=== PATIENT | male | born 1985 | race African-American/Black ===

== ENCOUNTER 2016-07-02 18:31 | Emergency (ER) | payer MEDICAID ==
[~2016-07-02] VITALS: Ht 175.3 cm; Wt 76.0 kg
[~2016-07-02 18:31] MED LIST: HYDR-1348
[2016-07-02 23:09] VITALS: BP 138/82
== END 2016-07-02 23:11 | disposition home or self-care (01) ==
LOC: ER 18:31
DX: S62.92XA Unspecified fracture of left hand, initial encounter for closed fracture (principal); I10 Essential (primary) hypertension; F17.200 Nicotine dependence, unspecified, uncomplicated; Z98.890 Other specified postprocedural states; X58.XXXA Exposure to other specified factors, initial encounter; Y93.89 Activity, other specified; Y99.8 Other external cause status; Y92.89 Other specified places as the place of occurrence of the external cause
CPT/HCPCS: 29125; 73130; 99284

== ENCOUNTER 2017-06-29 17:49 | Emergency (ER) | payer MEDICAID ==
[~2017-06-29] VITALS: Ht 175.3 cm; Wt 91.0 kg
[2017-06-29] MEDS ORDERED: IBUPROFEN 800MG TABLET PO ONE (19:45)
[2017-06-29 20:50] VITALS: BP 129/90
== END 2017-06-29 20:52 | disposition home or self-care (01) ==
LOC: ER 18:48
DX: R07.89 Other chest pain (principal); I10 Essential (primary) hypertension; F17.200 Nicotine dependence, unspecified, uncomplicated
CPT/HCPCS: 71045; 93005; 99284

== ENCOUNTER 2018-01-17 11:21 | Emergency (ER) | payer MEDICAID ==
[~2018-01-17] VITALS: Ht 175.3 cm; Wt 68.0 kg
[2018-01-17 11:30] VITALS: BP 120/81
== END 2018-01-17 22:10 | disposition left against medical advice (07) ==
LOC: ER 11:21
DX: Z53.21 Procedure and treatment not carried out due to patient leaving prior to being seen by health care provider (principal)

== ENCOUNTER 2018-05-18 07:17 | Emergency (ER) | payer MEDICAID ==
[~2018-05-18] VITALS: Ht 175.3 cm; Wt 78.0 kg
[2018-05-18 07:34] VITALS: BP 135/91
== END 2018-05-18 09:28 | disposition home or self-care (01) ==
LOC: ER 07:17
DX: H61.21 Impacted cerumen, right ear (principal); F12.10 Cannabis abuse, uncomplicated; Z79.899 Other long term (current) drug therapy
CPT/HCPCS: 69209; 99282

== ENCOUNTER 2018-10-13 14:48 | Emergency (ER) | payer MEDICAID ==
[~2018-10-13] VITALS: Ht 170.2 cm; Wt 90.0 kg
[2018-10-13] MEDS ORDERED: IBUPROFEN 600MG TABLET PO STA (16:03)
[2018-10-13 17:50] VITALS: BP 143/86
== END 2018-10-13 20:23 | disposition home or self-care (01) ==
LOC: ER 14:48
DX: J06.9 Acute upper respiratory infection, unspecified (principal); M94.0 Chondrocostal junction syndrome [Tietze]; I10 Essential (primary) hypertension; Z91.19 Patient's noncompliance with other medical treatment and regimen
CPT/HCPCS: 71045; 93005; 99283

== ENCOUNTER 2019-01-09 13:41 | Emergency (ER) | payer MEDICAID ==
[~2019-01-09] VITALS: Ht 177.8 cm; Wt 100.0 kg
[2019-01-09 13:44] VITALS: BP 146/99
== END 2019-01-09 15:52 | disposition left against medical advice (07) ==
LOC: ER 13:41
DX: Z53.21 Procedure and treatment not carried out due to patient leaving prior to being seen by health care provider (principal)

== ENCOUNTER 2019-04-13 07:23 | Emergency (ER) | payer MEDICAID ==
[~2019-04-13] VITALS: Ht 175.3 cm; Wt 87.0 kg
[2019-04-13 08:03] VITALS: BP 158/78
== END 2019-04-13 08:33 | disposition home or self-care (01) ==
LOC: ER 08:11
DX: J06.9 Acute upper respiratory infection, unspecified (principal); I10 Essential (primary) hypertension
CPT/HCPCS: 99283

== ENCOUNTER 2022-09-23 12:00 | Emergency (ER) | payer MEDICAID ==
[~2022-09-23] VITALS: Ht 175.3 cm; Wt 89.0 kg
[2022-09-23 12:23] VITALS: BP 125/75; RESP 20; TEMP 98.8; O2SAT 100
[2022-09-23 12:26] VITALS: PULSE 69
[2022-09-23] MEDS ORDERED: BACITRACIN ZINC OINT UDPKT TOP ONE (13:15)
[2022-09-23] MEDS ORDERED: LIDOCAINE HCL/PF 1% 10 MG/ML 5ML VIAL INFIL ONE (13:15)
[2022-09-23] MEDS ORDERED: CEPH500C2 MT (14:18)
[2022-09-23] MEDS ORDERED: IBUP-2029 PO (14:18)
[2022-09-23] MEDS ORDERED: SULF1TAB48 PO (14:18)
[2022-09-23] MEDS ORDERED: IBUPROFEN 600MG TABLET PO STA (14:35)
== END 2022-09-23 15:15 | disposition home or self-care (01) ==
LOC: ER 12:47
DX: L72.3 Sebaceous cyst (principal)
CPT/HCPCS: 10060; 99283; J3490; Z7610

== ENCOUNTER 2023-02-27 17:23 | Emergency (ER) | payer MEDICAID ==
[~2023-02-27] VITALS: Ht 175.3 cm; Wt 82.0 kg
[~2023-02-27 17:23] MED LIST changes: +CEPH500C2 MT; +IBUP-2029 PO; +SULF1TAB48 PO
[2023-02-27 17:40] VITALS: O2SAT 100
[2023-02-27] MEDS ORDERED: ONDANSETRON HCL 4MG/2ML INJ IV STA (18:27)
[2023-02-27] MEDS ORDERED: MAGNESIUM/ALUMINUM HYDROXIDE/SIMETHICONE 30ML UDC PO STA (18:27)
[2023-02-27] MEDS ORDERED: DICYCLOMINE 10 MG/5 ML ORAL SYR PO STA (18:27)
[2023-02-27] MEDS ORDERED: HALOPERIDOL LACTATE 5MG/ML VIAL IM ONE (18:30)
[2023-02-27] MEDS ORDERED: DIPHENHYDRAMINE 50MG/ML VIAL IV ONE (18:30)
[2023-02-27] MEDS ORDERED: DICYCLOMINE HCL 10MG CAPSULE PO NR (18:30)
[2023-02-27 20:00] VITALS: TEMP 99.2
[2023-02-27 20:24] LABS: BASOPHILS % 0.4 % (0.0-2.0); EOSINOPHILS % 0.2 % (0.0-5.0); HEMATOCRIT. 46.7 % (42.0-52.0); HEMOGLOBIN. 16.2 g/dL (14.0-18.0); LYMPHOCYTES % 16.3 % (20.0-50.0); MEAN CORPUSCULAR HEMOGLOBIN 34.4 pg (28.0-32.0); MEAN CORPUSCULAR HGB CONC 34.7 g/dL (31.0-37.0); MEAN PLATELET VOLUME 7.2 fl (7.4-10.4); MONOCYTES % 9.4 % (2.0-8.0); NEUTROPHILS % 73.7 % (40.0-76.0); PLATELET 304 x1000/uL (130-400); RED BLOOD CELL COUNT 4.72 mill/uL (4.7-6.1); RED CELL DISTRIBUTION WIDTH 14.1 % (11.6-14.6); WHITE BLOOD COUNT 6.6 x1000/uL (4.5-11.0)
[2023-02-27 20:27] LABS: PROTHROMBIN TIME 10.3 sec (9.6-11.0)
[2023-02-27 20:31] LABS: ALANINE AMINOTRANSFERASE 21 IU/L (10-49); ALBUMIN 4.4 g/dL (3.2-4.8); ASPARTATE AMINOTRANSFERASE 30 IU/L (<34); BILIRUBIN TOTAL 0.7 mg/dL (0.1-1.0); CALCIUM 9.3 mg/dL (8.7-10.4); CARBON DIOXIDE 26 mEq/L (21-32); CHLORIDE 103 mEq/L (98-107); GLUCOSE 105 mg/dL (70-105); POTASSIUM 3.4 mEq/L (3.5-5.1); PROTEIN TOTAL 7.6 g/dL (6.0-8.3); SODIUM 139 mEq/L (136-145); TROPONIN I HIGH SENSITIVITY 9 ng/L (3.0-53); UREA NITROGEN BLOOD 23 mg/dL (9-23)
[2023-02-27 20:48] LABS: ETHANOL BLOOD < 10 mg/dL (<10)
[2023-02-27 23:03] LABS: TROPONIN I HIGH SENSITIVITY 11 ng/L (3.0-53)
[2023-02-28 01:36] VITALS: BP 126/82; PULSE 62; RESP 20
== END 2023-02-28 02:13 | disposition home or self-care (01) ==
LOC: ER 17:23
DX: R11.2 Nausea with vomiting, unspecified (principal); R10.13 Epigastric pain; I10 Essential (primary) hypertension; F12.10 Cannabis abuse, uncomplicated
CPT/HCPCS: 80053; 80320; 83690; 85025; 85610; 84484; 36415; 74176; 96372; 96374; 96375; 99285; J1200; J1630; J2405; G0480

== ENCOUNTER 2023-03-01 08:39 | Emergency (ER) | payer MEDICAID, OTHER ==
[~2023-03-01] VITALS: Ht 175.3 cm; Wt 78.0 kg
[2023-03-01 08:44] VITALS: BP 180/100; PULSE 54; RESP 15; TEMP 99; O2SAT 100
[2023-03-01 09:27] LABS: BASOPHILS % 0.9 % (0.0-2.0); DIFFERENTIAL COMMENT 0; EOSINOPHILS % 0.1 % (0.0-5.0); HEMATOCRIT. 49.5 % (42.0-52.0); HEMOGLOBIN. 16.4 g/dL (14.0-18.0); LYMPHOCYTES % 12.2 % (20.0-50.0); MEAN CORPUSCULAR HEMOGLOBIN 33.5 pg (28.0-32.0); MEAN CORPUSCULAR HGB CONC 33.2 g/dL (31.0-37.0); MEAN CORPUSCULAR VOLUME 100.9 fL (80.0-94.0); MEAN PLATELET VOLUME 7.3 fl (7.4-10.4); MONOCYTES % 6.8 % (2.0-8.0); PLATELET 351 x1000/uL (130-400); RED BLOOD CELL COUNT 4.91 mill/uL (4.7-6.1); RED CELL DISTRIBUTION WIDTH 13.6 % (11.6-14.6); WHITE BLOOD COUNT 7.4 x1000/uL (4.5-11.0)
[2023-03-01 09:28] LABS: ALANINE AMINOTRANSFERASE 23 IU/L (10-49); ALBUMIN 4.4 g/dL (3.2-4.8); ASPARTATE AMINOTRANSFERASE 30 IU/L (<34); BILIRUBIN TOTAL 0.9 mg/dL (0.1-1.0); CALCIUM 9.5 mg/dL (8.7-10.4); CARBON DIOXIDE 25 mEq/L (21-32); CHLORIDE 105 mEq/L (98-107); GLUCOSE 109 mg/dL (70-105); POTASSIUM 3.9 mEq/L (3.5-5.1); PROTEIN TOTAL 7.7 g/dL (6.0-8.3); SODIUM 139 mEq/L (136-145); UREA NITROGEN BLOOD 16 mg/dL (9-23)
[2023-03-01] MEDS ORDERED: HALOPERIDOL LACTATE 5MG/ML VIAL IM ONE (09:30)
== END 2023-03-01 13:41 | disposition left against medical advice (07) ==
LOC: ER 08:39
DX: R10.10 Upper abdominal pain, unspecified (principal); F12.20 Cannabis dependence, uncomplicated; I10 Essential (primary) hypertension
CPT/HCPCS: 36415; 80053; 85025; 99283

== ENCOUNTER 2023-03-18 07:59 | Emergency (ER) | payer MEDICAID, OTHER ==
[~2023-03-18] VITALS: Ht 175.3 cm; Wt 91.0 kg
[2023-03-18 08:06] VITALS: O2SAT 98
[2023-03-18 09:50] VITALS: BP 96/67; PULSE 67; RESP 18; TEMP 98.2
== END 2023-03-18 09:52 | disposition home or self-care (01) ==
LOC: ER 07:59
DX: M79.644 Pain in right finger(s) (principal); F12.10 Cannabis abuse, uncomplicated; I10 Essential (primary) hypertension; Z91.013 Allergy to seafood
CPT/HCPCS: 73130; 73140; 99284

== ENCOUNTER 2023-05-12 20:37 | Emergency (ER) | payer MEDICAID, OTHER ==
[~2023-05-12] VITALS: Ht 175.3 cm; Wt 80.0 kg
[2023-05-12 20:41] VITALS: TEMP 98.4; O2SAT 96
[2023-05-12 21:04] VITALS: BP 144/86; PULSE 70; RESP 20
[2023-05-12] MEDS: KETOROLAC 30MG/ML VIAL IM ONE (21:22)
== END 2023-05-12 23:02 ==
LOC: ER 20:37
DX: S20.229A Contusion of unspecified back wall of thorax, initial encounter (principal); X58.XXXA Exposure to other specified factors, initial encounter; Y93.89 Activity, other specified; Y92.89 Other specified places as the place of occurrence of the external cause; Y99.8 Other external cause status; J45.909 Unspecified asthma, uncomplicated; I10 Essential (primary) hypertension; F12.10 Cannabis abuse, uncomplicated; Z79.899 Other long term (current) drug therapy
CPT/HCPCS: 99285; 72128; 71045; 96372; J1885

== ENCOUNTER 2023-10-16 06:48 | Emergency (ER) | payer MEDICAID ==
[~2023-10-16] VITALS: Ht 172.7 cm; Wt 82.0 kg
[2023-10-16 06:53] VITALS: TEMP 98.3; O2SAT 100
[2023-10-16 07:20] VITALS: BP 167/121; PULSE 80; RESP 20
[2023-10-16] MEDS: HYDROCODONE/ACETAMINOPHEN 5/325MG TABLET PO ONE (07:20)
[2023-10-16] MEDS ORDERED: AMOX-494 MT (07:25)
[2023-10-16] MEDS ORDERED: HYDR-4001 MT (07:25)
== END 2023-10-16 07:54 | disposition home or self-care (01) ==
LOC: ER 06:48
DX: S02.5XXA Fracture of tooth (traumatic), initial encounter for closed fracture (principal); R68.84 Jaw pain; J45.909 Unspecified asthma, uncomplicated; I10 Essential (primary) hypertension; K04.7 Periapical abscess without sinus; Z79.899 Other long term (current) drug therapy; X58.XXXA Exposure to other specified factors, initial encounter; Y93.89 Activity, other specified; Y92.89 Other specified places as the place of occurrence of the external cause; Y99.8 Other external cause status
CPT/HCPCS: 99283

== ENCOUNTER 2024-03-11 08:41 | Emergency (ER) | payer MEDICAID, OTHER ==
[~2024-03-11] VITALS: Ht 175.3 cm; Wt 87.0 kg
[~2024-03-11 08:41] MED LIST changes: +AMOX-494 MT; +HYDR-4001 MT
[2024-03-11 08:47] VITALS: TEMP 98.3; O2SAT 99
[2024-03-11 08:54] VITALS: O2SAT 98
[2024-03-11] MEDS ORDERED: HYDR-4001 MT (09:57)
[2024-03-11] MEDS ORDERED: AMOX1TAB16 MT (09:57)
[2024-03-11 10:01] VITALS: BP 146/123; PULSE 88; RESP 18
[2024-03-11] MEDS: HYDROCODONE/ACETAMINOPHEN 10/325MG TABLET PO ONE (10:01)
[2024-03-11] MEDS ORDERED: HYDR-4001 PO (15:11)
== END 2024-03-11 10:32 | disposition home or self-care (01) ==
LOC: ER 08:41
DX: S02.5XXA Fracture of tooth (traumatic), initial encounter for closed fracture (principal); I10 Essential (primary) hypertension; K04.7 Periapical abscess without sinus; F10.90 Alcohol use, unspecified, uncomplicated; F12.90 Cannabis use, unspecified, uncomplicated; X58.XXXA Exposure to other specified factors, initial encounter; Y93.89 Activity, other specified; Y92.89 Other specified places as the place of occurrence of the external cause; Y99.8 Other external cause status; Y90.9 Presence of alcohol in blood, level not specified
CPT/HCPCS: 99283

== ENCOUNTER 2024-04-21 07:37 | Emergency (ER) | payer MEDICAID, OTHER ==
[~2024-04-21] VITALS: Ht 177.8 cm; Wt 90.7 kg
[~2024-04-21 07:37] MED LIST changes: +AMOX1TAB16 MT; +HYDR-4001 PO
[2024-04-21 07:59] VITALS: BP 142/105; PULSE 72; RESP 16; TEMP 36.6; O2SAT 99
[2024-04-21] MEDS ORDERED: CLIN-194 MT (08:39)
[2024-04-21] MEDS ORDERED: IBUP-2030 MT (08:39)
[2024-04-21] MEDS: IBUPROFEN 800MG TABLET PO STA (09:23)
[2024-04-21] MEDS: CLINDAMYCIN HCL 150MG CAPSULE PO STA (09:23)
== END 2024-04-21 09:24 | disposition home or self-care (01) ==
LOC: ER 07:37
DX: K08.89 Other specified disorders of teeth and supporting structures (principal); F12.10 Cannabis abuse, uncomplicated; Z91.013 Allergy to seafood; Z79.899 Other long term (current) drug therapy
CPT/HCPCS: 99283

== ENCOUNTER 2024-04-30 08:52 | Emergency (ER) | payer MEDICAID ==
[~2024-04-30] VITALS: Ht 175.3 cm; Wt 91.0 kg
[~2024-04-30 08:52] MED LIST changes: +CLIN-194 MT; +IBUP-2030 MT
[2024-04-30 09:06] VITALS: O2SAT 100
[2024-04-30] MEDS ORDERED: IBUP-2029 MT (10:06)
[2024-04-30] MEDS ORDERED: HYDR-4001 MT (10:06)
[2024-04-30] MEDS: HYDROCODONE/ACETAMINOPHEN 5/325MG TABLET PO ONE (10:30)
[2024-04-30 10:50] VITALS: BP 145/98; PULSE 64; RESP 16; TEMP 36.7; O2SAT 100
== END 2024-04-30 10:52 | disposition home or self-care (01) ==
LOC: ER 08:52
DX: S69.92XA Unspecified injury of left wrist, hand and finger(s), initial encounter (principal); F12.90 Cannabis use, unspecified, uncomplicated; Z79.899 Other long term (current) drug therapy; Z91.013 Allergy to seafood; X58.XXXA Exposure to other specified factors, initial encounter; Y93.89 Activity, other specified; Y92.89 Other specified places as the place of occurrence of the external cause; Y99.8 Other external cause status
CPT/HCPCS: 29125; 73100; 73120; 99284; A4565

== ENCOUNTER 2024-06-27 07:28 | Emergency (ER) | payer MEDICAID ==
[~2024-06-27] VITALS: Ht 162.6 cm; Wt 68.0 kg
[~2024-06-27 07:28] MED LIST changes: +IBUP-2029 MT
[2024-06-27 07:49] VITALS: O2SAT 100
[2024-06-27] MEDS ORDERED: IBUP-2029 MT (09:07)
[2024-06-27] MEDS ORDERED: AMOX1TAB16 MT (09:07)
[2024-06-27] MEDS ORDERED: IBUPROFEN 600MG TABLET PO ONE (09:15)
[2024-06-27] MEDS ORDERED: AMOXICILLIN/POTASSIUM CLAVULANATE 875/125MG TAB PO ONE (09:15)
[2024-06-27] MEDS: AMOXICILLIN/POTASSIUM CLAVULANATE 875/125MG TAB PO NR (09:33)
[2024-06-27] MEDS: HYDROCODONE/ACETAMINOPHEN 10/325MG TABLET PO ONE (09:34)
[2024-06-27] MEDS: IBUPROFEN 600MG TABLET PO NR (09:34)
[2024-06-27 09:40] VITALS: BP 130/99; PULSE 79; RESP 16; TEMP 37; O2SAT 100
== END 2024-06-27 09:58 | disposition home or self-care (01) ==
LOC: ER 07:28
DX: K04.7 Periapical abscess without sinus (principal); F12.90 Cannabis use, unspecified, uncomplicated; Z79.899 Other long term (current) drug therapy; Z98.890 Other specified postprocedural states; Z91.013 Allergy to seafood
CPT/HCPCS: 99284

== ENCOUNTER 2024-12-28 09:58 | Emergency (ER) | payer MEDICAID ==
[~2024-12-28] VITALS: Ht 170.2 cm; Wt 86.0 kg
[~2024-12-28 09:58] MED LIST changes: +IBUP-1455 MT; +IBUP-1455 PO; -IBUP-2029 MT; -IBUP-2029 PO
[2024-12-28 10:04] VITALS: O2SAT 98
[2024-12-28 10:51] VITALS: TEMP 36.7; O2SAT 100
[2024-12-28 11:14] LABS: BASOPHILS % 0.7 % (0.0-2.0); EOSINOPHILS % 1.5 % (0.0-5.0); HEMATOCRIT. 44.7 % (42.0-52.0); HEMOGLOBIN. 14.9 g/dL (14.0-18.0); LYMPHOCYTES % 39.8 % (20.0-50.0); MONOCYTES % 10.6 % (2.0-8.0); NEUTROPHILS % 47.4 % (40.0-76.0); RED BLOOD CELL COUNT 4.57 mill/uL (4.7-6.1); RED CELL DISTRIBUTION WIDTH 14.0 % (11.6-14.6)
[2024-12-28] MEDS ORDERED: PANTOPRAZOLE 80 MG in SODIUM CHLORIDE 0.9% 100 ML IV ONE (11:15)
[2024-12-28] MEDS ORDERED: SODIUM CHLORIDE 0.9% 1,000 ML IV ONE (11:15)
[2024-12-28 11:28] LABS: CREATININE 0.8 mg/dL (0.6-1.3); UREA NITROGEN BLOOD 13 mg/dL (9-23)
[2024-12-28 11:54] LABS: INR 0.9
[2024-12-28 11:59] LABS: MEAN PLATELET VOLUME 7.6 fl (7.4-10.4); PLATELET 289 x1000/uL (130-400)
[2024-12-28 12:06] LABS: CREATININE 0.9 mg/dL (0.6-1.3); UREA NITROGEN BLOOD 13 mg/dL (9-23)
[2024-12-28 12:08] LABS: ASPARTATE AMINOTRANSFERASE 24 IU/L (<34); BILIRUBIN DIRECT 0.2 mg/dL (<=3.0); BILIRUBIN TOTAL 0.5 mg/dL (0.1-1.0); PROTEIN TOTAL 6.4 g/dL (6.0-8.3)
[2024-12-28 14:13] VITALS: BP 115/80; PULSE 60; RESP 18; TEMP 98.1
[2024-12-28] MEDS ORDERED: LORAZEPAM 1MG TABLET PO PRN (16:30)
[2024-12-28] MEDS ORDERED: ONDANSETRON HCL 4MG/2ML INJ IV PRN (16:30)
[2024-12-29] MEDS ORDERED: PANTOPRAZOLE 40MG DR TABLET PO SCH (07:50)
== END 2024-12-28 14:30 | disposition left against medical advice (07) ==
LOC: ER 09:58 → EDBEDREQ 11:18 → EDBEDREQTM 12:53 → EDBEDREQ 12:53 → ENRESERV 14:00 → ER 14:30 → CANBEDREQ 14:49
DX: K92.2 Gastrointestinal hemorrhage, unspecified (principal); F17.200 Nicotine dependence, unspecified, uncomplicated; F12.90 Cannabis use, unspecified, uncomplicated; R07.9 Chest pain, unspecified; Z91.013 Allergy to seafood
CPT/HCPCS: 99284; 80076; 80048; 83690; 85025; 85610; 85730; 86850; 86900; 86901; 36415; 93005; J2470; J7050; J7030

== ENCOUNTER 2024-12-30 08:32 | Emergency (ER) | payer MEDICAID ==
[~2024-12-30] VITALS: Ht 175.3 cm; Wt 85.0 kg
[2024-12-30 08:54] VITALS: O2SAT 99
[2024-12-30] MEDS: KETOROLAC 15MG/ML VIAL IM ONE (09:45)
[2024-12-30] MEDS: ACETAMINOPHEN 325MG TABLET PO ONE (09:45)
[2024-12-30] MEDS ORDERED: CEPH500T MT (10:23)
[2024-12-30 10:41] VITALS: BP 138/91; PULSE 78; RESP 14; TEMP 36.9; O2SAT 99
== END 2024-12-30 10:43 | disposition left against medical advice (07) ==
LOC: ER 08:32
DX: L08.9 Local infection of the skin and subcutaneous tissue, unspecified (principal); Z91.013 Allergy to seafood
CPT/HCPCS: 99283; 73130; 96372; J1885